=== PATIENT | male | born 1990 | race Caucasian/White ===

== ENCOUNTER 2017-05-03 05:59 | Day surgery (SDC) | payer OTHER ==
[~2017-05-03 05:59] MED LIST: Buffered Lidocaine 0.9% SYRIN* 5 ML/SYR SYRINGE INTRADERM ONE
[2017-05-03] MEDS ORDERED: Famotidine IV* 10 MG/ML 2 ML (20 mg) IV ONE (06:00)
[2017-05-03] MEDS ORDERED: Dexamethasone IV* 4 MG/ML 1 ML (4 MG) IV SLOW PU ONE (06:00)
[2017-05-03] MEDS ORDERED: Buffered Lidocaine 0.9% SYRIN* 5 ML/SYR SYRINGE ONE (06:09)
[2017-05-03] MEDS ORDERED: Clindamycin 900 MG IVPREMIX(* 900 MG/50 ML SDV IV ONE (06:09)
[2017-05-03] MEDS ORDERED: Famotidine IV* 10 MG/ML 2 ML (20 mg) ONE (06:09)
[2017-05-03] MEDS ORDERED: Dexamethasone IV* 4 MG/ML 1 ML (4 MG) ONE (06:09)
[2017-05-03] MEDS ORDERED: EPINEPHrine AMP 1 MG/ML ONE (07:03)
[2017-05-03] MEDS ORDERED: Bupivacaine 0.5% SDV PF* 30 ML VIAL ONE (07:04)
[2017-05-03] MEDS ORDERED: fentaNYL* 50 MCG/ML 5 ML VIAL (250 MCG VIAL) ONE (07:27)
[2017-05-03] MEDS ORDERED: Ketorolac INJ* 30 MG/ML 1 ML VIAL ONE (07:27)
[2017-05-03] MEDS ORDERED: Propofol* 10 MG/ML 20 ML BTL IV PUSH ONE (07:27)
[2017-05-03] MEDS ORDERED: Midazolam* 1 MG/ML 2 ML VIAL (2 MG) ONE (07:27)
[2017-05-03] MEDS ORDERED: Ondansetron INJ* 2 MG/ML VIAL ONE (07:27)
[2017-05-03] MEDS ORDERED: Lidocaine 2% PF * 5 ML VIAL ONE (07:28)
[2017-05-03] MEDS ORDERED: Ondansetron INJ* 2 MG/ML VIAL IV PRN (07:33)
[2017-05-03] MEDS ORDERED: DiMENhydriNATE IV* 50 MG/ML VIAL IV PUSH PRN (07:33)
[2017-05-03] MEDS ORDERED: fentaNYL* 50 MCG/ML 2 ML VIAL (100 MCG VIAL) ONE ×4 (08:44→10:01)
[2017-05-03] MEDS ORDERED: Desflurane* 240 ML INH ONE (09:29)
[2017-05-03] MEDS: fentaNYL* 50 MCG/ML 2 ML VIAL (100 MCG VIAL) IV PRN ×4 (09:41→10:48)
[2017-05-03] MEDS ORDERED: oxyCODONE/Acetamin 5/325 MG* TAB ONE ×2 (10:01→10:49)
[2017-05-03] MEDS: oxyCODONE/Acetamin 5/325 MG* TAB PO PRN ×2 (10:02→10:50)
[2017-05-03 11:16] VITALS: BP 144/91
--- NOTE | 2017-05-03 23:38 | OP ---
DATE OF OPERATION: 05/03/17 - [facility] DATE OF : [birth year] SURGEON: Joon Martinez MD MECHANICAL HANDYMAN: MAGGIE Valdez. A physician media center assistant was required for the length of the procedure for help with positioning and instrumentation and knee manipulation. ANESTHESIOLOGIST: Evna Veliz MD ANESTHESIA: General anesthesia. PRE-OP DIAGNOSES: 1. Severe unremitting left knee pain. 2. Left knee possible meniscus tear. 3. Left knee possible ganglion cyst. POST-OP DIAGNOSES: 1. Severe unremitting left knee pain. 2. Left knee medial meniscus tear, longitudinal, body. 3. Left knee possible posterior ganglion cyst. 4. Left knee lateral patellar tracking. OPERATIVE PROCEDURE: 1. Left knee diagnostic arthroscopy. 2. Left knee medial meniscus repair with all-inside suture x1. 3. Left knee debridement, decompression of a possible posterior ganglion cyst, arthroscopic. 4. Left knee evaluation of patellar tracking, arthroscopic. 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 The knee pain was such that the patient was unable to walk without an assist device. The patient had been using a cane, crutches, or even a walker. The patient's history was significant for a distant past history of a possible ACL sprain and a likely patellar dislocation event with arthroscopic removal of loose body. These were all in the distant past. See my full history and physical for complete history. The patient responded insufficiently to nonoperative management. The patient's anterior pain subsided with cortisone injection, but his posterior pain, just at the posterior joint line, where he was tender to palpation, persisted. MRI showed no clear pathology. My presumptive diagnosis was of a possible meniscus tear, possibly at the root or possibly at the posterior horn. I also considered a ganglion cyst that might be between or posterior to the cruciate's and might be causing the persistent pain and tenderness to palpation. I discussed risks and potential complications of surgery including bleeding, infection, nerve or blood vessel injury, knee pain, stiffness and osteoarthritis , instrumentation difficulties. ANTIBIOTICS: Clindamycin 900 mg IV. IV FLUIDS: 800 cc crystalloid. TOURNIQUET TIME: 70 minutes at 300 mmHg. EBL: Minimal. COMPLICATIONS: None. SPECIMEN: None. IMPLANTS: FasT-Fix 360 suture x1. DESCRIPTION OF PROCEDURE: In preoperative holding, the patient obtained a surgical consent. A written consent was obtained. Operative extremity was marked in preoperative holding. The patient was taken back to the operating room, placed supine on the operating room table. The patient was sedated and LMA was placed. General anesthesia. The left lower extremity had a tourniquet placed around the proximal thigh. [place] bump was placed under the left hemipelvis. The left distal thigh was placed in the circumferential thigh bennett. The table was elevated and the foot of the table was dropped. The left lower extremity was prepped with ChloraPrep. This was done foot to distal thigh. Draping was performed. Surgical time-out was performed. Esmarch was applied and the tourniquet was elevated to 300 mmHg. Anterolateral knee arthroscopy portal was established using standard technique. Diagnostic arthroscopy was commenced. I started in the patellofemoral compartment. No significant articular cartilage lesions were noted. I moved down to the medial compartment. I noted a slight indentation, obliquely oriented, that looked old, and showed no acute instability of articular cartilage. I saw no significant unstable injury to medial tibial plateau or medial femoral condyle. While viewing through the lateral portal at this point , I did view perhaps a small defect at the medial most end of the medial femoral condyle; a small defect, again chronic appearing. It should be noted that this same spot was not well visualized through the medial portal later in the case. The medial compartment was noted to be tight. At first, at this point , my media center assistant providing good valgus pressure on the knee, I could not see, visualize the meniscocapsular junction about the posterior body and the posterior horn. There was no clear tear evident at first. There was some flounce, or some strike laxity noted to the inner rim of the meniscus noted at the posterior body, posterior horn junction. I moved to the anterior aspect of the knee. There was, remarkably, no significant synovitis about the anterior aspect of the knee. No synovitis was debrided for aid in visualization and instrumentation. The patient had a little bit of inflamed tissue overlying the PCL origin on the femur. It should be noted that while I was still on the medial compartment, I was able to visualize nicely the posterior root of the medial meniscus and I saw no tear. I next moved to the lateral compartment. There was no articular cartilage injury. There was no meniscus injury visualizable. I next returned to the medial compartment. I was most interested in instrumenting, specifically, probing the posterior horn and the root of the medial meniscus. Therefore, I established a medial portal that would be positioned to best do this. I established a medial portal under direct visualization. I visualized the medial meniscus and probed it, first viewing through the anterolateral portal and instrumenting medial and then visualizing through the anteromedial portal and probing from lateral. There was clearly no root tear. I debrided some tissue between the PCL and the root of the medial meniscus, posterior. There was no tear there. It was very stable to probing and no visual tear. About this time, I also debrided some inflamed tissue about the anterior aspect of the PCL origin debriding that back to more visualizable fibers. I did notice a slight area of fray in the posterior body of the medial meniscus. When I probed this gently with the arthroscopic probe, the probe clearly entered into the meniscal tissue at this point. I probed both from the superior and the inferior aspect of the meniscus. The tear did not seem unstable and the meniscus did not pull into the center of the compartment with gentle tug. However, there was some clear degeneration of the meniscus in this spot. I did not yet decide whether or not I would repair this. I next moved to the lateral compartment. I viewed the lateral meniscus from medial and from lateral and, using an arthroscopic probe, assessed the stability of the lateral meniscus from anterior to posterior. There was no lateral meniscal tear including of the posterior root of the lateral meniscus. I next positioned the knee in neutral in 45 degrees of flexion as well as in near full extension. I visualized either side of the cruciate's and I used an arthroscopic probe and also a switching stick to debride between the cruciate ligaments as well as posterior to the cruciate ligaments. Especially, when I began this, there was a flush of globules that moved into my visual field, more anterior in the knee. Whether this was ganglion fluid as I have encountered in the past or just simply fat globules was difficult to determine; however, there was certainly a rai of globules after I debrided the adhesions from it. I shaved these up with an arthroscopic shaver. Without having found any other meniscal pathology, I returned to the medial compartment. I visualized and probed again the degeneration and tear of the medial meniscus and the posterior aspect of the body. It was a short longitudinal tear. It was neither peripheral nor central. I would describe it in the more peripheral part of the red-white zone. The meniscal tissue central to it was of good quality and none of it was shaved up when I brought in an arthroscopic shaver close to it. The defect was clear superiorly. It did not seem as well defined inferiorly, although the probe did hook on to something inferiorly. I decided to fix the meniscus tear. In order to open the medial compartment a little bit more, I did a partial pie- crusting of the MCL. I placed my arthroscopic needle, spinal needle from outside the knee into roughly the position of the MCL. I perhaps placed 6 stabs. I did not cut with this needle, I simply jabbed into the MCL with it. This possibly gave us a slightly more visualization in medial compartment, enough to perform the repair. I placed my arthroscope in the anteromedial portal. To get a perfect angle of instrumentation for the stitch, I placed an accessory anterolateral portal, more superior than the original anterolateral portal. Using standard technique, and using a skid entry device, I placed a FasT-Fix stitch in the medial meniscus at the point of the tear. I should say that I used a ball- tipped rasp first to debride inside that meniscus tear. Because of the proximity of the tear to the meniscocapsular junction, I preferred a horizontal mattress rather than a vertical mattress stitch. On second thought, the patient's tear therefore would probably be more at the red-red zone tear, the inner part of the red-red zone of the meniscus. Therefore, I placed a horizontal mattress stitch. I cut the stitch end. The meniscus looked more taut in that zone. I probed it gently with my arthroscopic probe and it seemed stable. I next evaluated the patellofemoral compartment again from my anteromedial portal. I saw no significant bursitis or synovitis entering into that compartment. I saw no unstable articular cartilage. I did note that the patella seemed to be tracking laterally. In order to get a better view of the patellofemoral tracking, I therefore created a proximal anteromedial portal proximal to the patella. I stuck my arthroscope in there and viewed the patellofemoral compartment through a variety of knee flexion positions from 0 to 110 degrees of knee flexion. I was more impressed by the lateral translation of the patella rather than a lateral tilt through range of motion. I removed fluid and instruments from the knee. We closed skin incision sites, 4 of them, with figure-of-8 and 12 stitches using nylon 4-0 suture. Xeroform. 4x4's, sterile Webril, Be bandage from foot to the proximal thigh. Tourniquet was dropped. Cooling unit was placed. Knee brace was applied. DISPOSITION: The patient was awakened and transferred to the PACU. I spoke with the patient's and the patient postoperatively. The patient will do physical therapy postoperatively. He will be nonweightbearing and the toe-touch weightbearing for 4 weeks postoperatively. After 4 weeks, he will be weight bearing as tolerated. I will limit his knee range of motion to 0 to 90 degrees in the first 4 weeks and then it will be as tolerated after 4 weeks. He will do physical therapy starting immediately according to my meniscal repair protocol. He can take Percocet as needed for pain control, Bactrim for infection prophylaxis, and aspirin for DVT prophylaxis. He will see me 10 to 14 days postoperative in clinic. I have already spoken with the patient's physical therapist in the afternoon following surgery to also let her know of my surgical findings and the result of our rehabilitation planning. [id number]/[facility] #: [id number] [place]
== END 2017-05-03 11:39 | disposition home or self-care (01) ==
LOC: OR 05:59
PROVIDERS: ATTEND Orthopaedic Surgery
DX: M23.204 Derangement of unspecified medial meniscus due to old tear or injury, left knee (principal); M25.562 Pain in left knee; M23.8X2 Other internal derangements of left knee
CPT/HCPCS: 36415; 84443; A9270-GY; J0171; J1100; J1885; J2250; J2405; J2704; J3010